=== PATIENT | male | born 1990 | race American Indian/Alaskan Native ===

== ENCOUNTER 2021-01-22 04:57 | Emergency (ER) | payer SELFPAY ==
[2021-01-22 05:10] VITALS: BP 107/62
[2021-01-22] MEDS ORDERED: ONDANSETRON 4 MG ODT TAB PO ONE (05:46)
[2021-01-22] MEDS ORDERED: CYCLOBENZAPRINE 10 MG TAB PO ONE (05:46)
[2021-01-22] MEDS ORDERED: predniSONE 20 MG TAB PO ONE (05:46)
[2021-01-22] MEDS ORDERED: IBUPROFEN 600 MG TAB PO ONE (05:46)
[2021-01-22] MEDS ORDERED: oxyCODONE /ACETAMINOPHEN 5-325MG TAB PO ONE (06:03)
--- NOTE | 2021-01-22 06:34 | Emergency Department Report ---
ED Back Pain/Injury HPI - General Chief Complaint: Back Pain/Injury Stated Complaint: BACK PAIN Time Seen by Provider: 01/22/21 06:03 Source: patient Limitations: No Limitations - History of Present Illness MD Complaint: back pain -: days(s) (4) Similar Symptoms Previously: No Place: home, work (Was playing basketball at work and which she hasn't played in quite some time and was jumping twisting and turning and developed some stiffness during the game which worsen after he sat down and rested and has continued to to aggravate him since the onset. He reports no falls no MVAs no loss of bow) Severity: moderate Quality: dull Consistency: constant Improves With: none Worsens With: movement Context: bending Associated Symptoms: denies: chest pain, difficulty walking, difficulty urinating, diaphoresis, incontinence, fever/chills, constipation, headaches, abdominal pain, nausea/vomiting, rash - Related Data Previous Rx's Medication Instructions Recorded Last Taken Type Ketorolac [Toradol] 10 mg PO Q6H PRN #15 tablet 01/22/21 Unknown Rx methOCARBAMOL [Robaxin] 750 mg PO Q8H PRN #21 tablet 01/22/21 Unknown Rx Allergies Allergy/AdvReac Type Severity Reaction Status Date / Time No Known Allergies Allergy Unverified 01/22/21 05:07 ED Review of Systems ROS: Stated complaint: BACK PAIN Other details as noted in HPI Comment: All other systems reviewed and negative ED Past Medical Hx - Past Medical History Additional medical history: ulcerative colitis - Social History Smoking Status: Never Smoker - Medications Home Medications: Home Medications Medication Instructions Recorded Confirmed Last Taken Type Ketorolac [Toradol] 10 mg PO Q6H PRN #15 tablet 01/22/21 Unknown Rx methOCARBAMOL [Robaxin] 750 mg PO Q8H PRN #21 tablet 01/22/21 Unknown Rx ED Physical Exam - General Limitations: No Limitations General appearance: alert, in no apparent distress - Head Head exam: Present: atraumatic, normocephalic - Eye Eye exam: Present: normal appearance, EOMI Pupils: Present: normal accommodation - ENT ENT exam: Present: mucous membranes moist - Neck Neck exam: Present: normal inspection - Respiratory Respiratory exam: Present: normal lung sounds bilaterally. Absent: respiratory distress - Cardiovascular Cardiovascular Exam: Present: regular rate, normal rhythm. Absent: systolic murmur, diastolic murmur, rubs, gallop - GI/Abdominal GI/Abdominal exam: Present: soft, normal bowel sounds - Rectal Rectal exam: Present: deferred - Extremities Exam Extremities exam: Present: normal inspection - Back Exam Back exam: Present: normal inspection, muscle spasm (Left paraspinous region), paraspinal tenderness, other. Absent: CVA tenderness (R), CVA tenderness (L), vertebral tenderness - Neurological Exam Neurological exam: Present: alert, oriented X3, CN II-XII intact, normal gait - Psychiatric Psychiatric exam: Present: normal affect, normal mood - Skin Skin exam: Present: warm, dry, intact, normal color. Absent: rash ED Course Vital Signs 01/22/21 05:09 Temperature 98.1 F Pulse Rate 61 Respiratory 16 Rate Blood Pressure 107/62 O2 Sat by Pulse 99 Oximetry ED Medical Decision Making - Medical Decision Making Pt presents the emergency department complaining of back pain most consistent with strain back Pain Most Consistent with Strain/Contusion. Differential Diagnosis Includes Lumbar Go Versus Musculoskeletal Spasm, Strain Versus Sciatica. No Back Pain Red Flags on History or Physical. Presentation Not Consistent with Malignancy, Fracture, Cauda Equina, Abdominal Aortic Aneurysm, Viscus Perforation, Pulmonary Embolism, Renal Colic, Pyelonephritis. Patient reports no B symptoms, trauma trauma, incontinence, saddle anesthesia, distal weakness, urinary symptoms and is a febrile. Critical care attestation.: If time is entered above; I have spent that time in minutes in the direct care of this critically ill patient, excluding procedure time. ED Disposition Clinical Impression: Lumbar strain Disposition: DC-01 TO HOME OR SELFCARE Is pt being admited?: No Does the pt Need Aspirin: No Condition: Stable Instructions: How to Use Cold Therapy, [id number], Lumbosacral Strain, Back Exercises, [id number] Prescriptions: methOCARBAMOL [Robaxin] 750 mg PO Q8H PRN #21 tablet PRN Reason: Spasms Ketorolac [Toradol] 10 mg PO Q6H PRN #15 tablet PRN Reason: Pain Referrals: PRIMARY CARE, [Primary Care Provider] - 3-5 Days BRIJESH SHELBY MD [Staff Physician] - 3-5 Days
== END 2021-01-22 06:25 | disposition home or self-care (01) ==
LOC: ED 04:57
DX: S39.012A Strain of muscle, fascia and tendon of lower back, initial encounter (principal); Z98.890 Other specified postprocedural states; X50.1XXA Overexertion from prolonged static or awkward postures, initial encounter; Y93.89 Activity, other specified; Y92.89 Other specified places as the place of occurrence of the external cause; Y99.8 Other external cause status
CPT/HCPCS: 99282; J7512; Q0162

== ENCOUNTER 2021-04-04 09:50 | Emergency (ER) | payer SELFPAY ==
[2021-04-04 11:16] VITALS: BP 107/73
--- NOTE | 2021-04-04 14:22 | Emergency Department Report ---
ED General Adult HPI - General Chief complaint: Back Pain/Injury Stated complaint: BACK/SIDE PAIN Time Seen by Provider: 04/04/21 14:14 Source: patient Mode of arrival: Ambulatory Limitations: No Limitations - History of Present Illness Initial comments: Patient is a 30-year-old male presents emergency with complaints of lower back pain that began a week ago. Patient states he was reading on the Internet and is concerned that he has a kidney stone or a kidney infection. He has had no fall or injury. He works in a warehouse and lifts heavy. He denies any fever, nausea, vomiting, diarrhea, abdominal pain, pain or swelling the testicles, dysuria, hematuria. No past medical history. No allergies to medications. Patient was evaluated in the emergency department a little over 2 months ago for the same complaint and he never followed up with anyone. - Related Data Previous Rx's Medication Instructions Recorded Last Taken Type Ketorolac [Toradol] 10 mg PO Q6H PRN #15 tablet 01/22/21 Unknown Rx methOCARBAMOL [Robaxin] 750 mg PO Q8H PRN #21 tablet 01/22/21 Unknown Rx Doxycycline Hyclate [Doxycycline 100 mg PO BID 7 Days #14 tab 04/04/21 Unknown Rx Hyclate TAB] Allergies Allergy/AdvReac Type Severity Reaction Status Date / Time No Known Allergies Allergy Verified 04/04/21 11:12 ED Review of Systems ROS: Stated complaint: BACK/SIDE PAIN Other details as noted in HPI Comment: All other systems reviewed and negative ED Past Medical Hx - Past Medical History Additional medical history: ulcerative colitis - Surgical History Past Surgical History?: No - Social History Smoking Status: Never Smoker - Medications Home Medications: Home Medications Medication Instructions Recorded Confirmed Last Taken Type Ketorolac [Toradol] 10 mg PO Q6H PRN #15 tablet 01/22/21 Unknown Rx methOCARBAMOL [Robaxin] 750 mg PO Q8H PRN #21 tablet 01/22/21 Unknown Rx Doxycycline Hyclate [Doxycycline 100 mg PO BID 7 Days #14 tab 04/04/21 Unknown Rx Hyclate TAB] ED Physical Exam - General Limitations: No Limitations General appearance: alert, in no apparent distress - Head Head exam: Present: atraumatic, normocephalic - Eye Eye exam: Present: normal appearance - ENT ENT exam: Present: mucous membranes moist - Neck Neck exam: Present: normal inspection, full ROM. Absent: tenderness, meningismus - Respiratory Respiratory exam: Present: normal lung sounds bilaterally. Absent: respiratory distress, wheezes, rales, rhonchi, stridor, chest wall tenderness, accessory muscle use, decreased breath sounds, prolonged expiratory - Cardiovascular Cardiovascular Exam: Present: regular rate, normal rhythm, normal heart sounds. Absent: systolic murmur, diastolic murmur, rubs, gallop - GI/Abdominal GI/Abdominal exam: Present: soft. Absent: distended, tenderness, guarding, rebound, rigid - Back Exam Back exam: Present: normal inspection, full ROM, paraspinal tenderness (bilateral lumbar paraspinal muscular ttp, no midline C-spine, T-spine or L- spine ttp, no step offs, no deformities ). Absent: CVA tenderness (R), CVA tenderness (L), vertebral tenderness - Neurological Exam Neurological exam: Present: alert, oriented X3 - Psychiatric Psychiatric exam: Present: normal affect, normal mood - Skin Skin exam: Present: warm, dry, intact ED Course Vital Signs 04/04/21 11:15 Temperature 98.0 F Pulse Rate 72 Respiratory 16 Rate Blood Pressure 107/73 O2 Sat by Pulse 100 Oximetry ED Medical Decision Making - Lab Data Lab Results 04/04/21 Range/Units Unknown Urine Color Yellow (Yellow) Urine Turbidity Slightly-cloudy (Clear) Urine pH 7.0 (5.0-7.0) Ur Specific [place] 1.017 (1.003-1.030) Urine Protein <15 mg/dl (Negative) mg/dL Urine Glucose (UA) Neg (Negative) mg/dL Urine Ketones Neg (Negative) mg/dL Urine Blood Sm (Negative) Urine Nitrite Neg (Negative) Urine Bilirubin Neg (Negative) Urine Urobilinogen < 2.0 (<2.0) mg/dL Ur Leukocyte Esterase Sm (Negative) Urine WBC (Auto) 39.0 H (0.0-6.0) /HPF Urine RBC (Auto) 6.0 (0.0-6.0) /HPF Urine Mucus Few /HPF - Medical Decision Making Patient is a 30-year-old male presents emergency with complaints of lower back pain that began a week ago. Patient states he was reading on the Internet and is concerned that he has a kidney stone or a kidney infection. He has had no fall or injury. He works in a warehouse and lifts heavy. He denies any fever, nausea, vomiting, diarrhea, abdominal pain, pain or swelling the testicles, dysuria, hematuria. No past medical history. No allergies to medications. Patient was evaluated in the emergency department a little over 2 months ago for the same complaint and he never followed up with anyone. Vitals are normal. on exam: bilateral lumbar paraspinal muscular ttp, no midline C-spine, T-spine or L-spine ttp, no step offs, no deformities, no CVA tenderness bilaterally. UA shows evidence of white blood cells and small leukocyte esterase, there is not a significant number of red blood cells. Asked patient if he is sexually active and he states yes, asked patient if he is concerned for STDs and he responded yes and he would like to be treated, patient given ceftriaxone IM while in the emergency department and given prescription for doxycycline. Discussed the importance of outpatient follow-up. advised pt Please take medication as prescribed to completion. Please follow-up with the clinic or the health department or to receive a full STD panel. Please have any partners tested and treated as well. Avoid sexual intercourse. Return to emergency room for any new or worsening symptoms. May alternate Tylenol or ibuprofen as needed for back pain. May use ice pack, heating pad, rest, and salt bath. May use [place] balm ointment but do not use heat or ice while using. Critical care attestation.: If time is entered above; I have spent that time in minutes in the direct care of this critically ill patient, excluding procedure time. ED Disposition Clinical Impression: Bacteria in urine, Concern about STD in male without diagnosis Low back pain Qualifiers: Chronicity: acute Back pain laterality: bilateral Sciatica presence: without sciatica Qualified Code(s): M54.5 - Low back pain Disposition: DC-01 TO HOME OR SELFCARE Is pt being admited?: No Does the pt Need Aspirin: No Condition: Stable Additional Instructions: Please take medication as prescribed to completion. Please follow-up with the clinic or the health department or to receive a full STD panel. Please have any partners tested and treated as well. Avoid sexual intercourse. Return to emergency room for any new or worsening symptoms. May alternate Tylenol or ibuprofen as needed for back pain. May use ice pack, heating pad, rest, and salt bath. May use [place] balm ointment but do not use heat or ice while using. walk in clinic for STD testing: [facility] Address: [address] [place] [address], [place] [address] Prescriptions: Doxycycline Hyclate [Doxycycline Hyclate TAB] 100 mg PO BID 7 Days #14 tab Referrals: [facility] [Outside] - 2-3 Days Time of Disposition: 15:40 Print Language: GREEK
[2021-04-04 15:21] LABS: Bilirubin,Urine NEG (Negative); Blood,Urine SM (Negative); Color,Urine Yellow (Yellow); Mucus,Urine FEW /HPF; Protein,Urine <15 mg/dL mg/dL (Negative); Urobilinogen,Urine < 2.0 mg/dL (<2.0)
[2021-04-04] MEDS ORDERED: LIDOCAINE-MPF (1%) 10 MG/1 ML VIAL 5 ML INFILTRATI ONE (15:40)
== END 2021-04-04 16:19 | disposition home or self-care (01) ==
LOC: ED 09:50
DX: R82.71 Bacteriuria (principal); M54.5 Low back pain
CPT/HCPCS: 81001; 87086; 96372; 99283; J0696

== ENCOUNTER 2022-05-25 12:21 | Emergency (ER) | payer SELFPAY ==
[2022-05-25 13:20] VITALS: BP 109/68
[2022-05-25] MEDS ORDERED: KETOROLAC 60 MG/2 ML INJ IM STA (16:29)
[2022-05-25] MEDS ORDERED: HYDROcodone/ACETAMINOPHEN 5-325 MG TAB PO STA ×2 (16:29→18:59)
--- NOTE | 2022-05-25 16:35 | Emergency Department Report ---
ED Back Pain/Injury HPI - General Chief Complaint: Pain General Stated Complaint: LEG AND BACK PAIN Time Seen by Provider: 05/25/22 16:12 Source: patient Limitations: No Limitations - History of Present Illness Initial Comments: 31-year-old male with no significant past medical history presents to the emergency department complaining of a few day history of back pain that is ra diating down his left leg and and now to his right leg with sharp shooting burning fashion. He is now also noticing some swelling involved of unknown etiology reports no calf pain, no long travel no long no previous history of any DVTs. Pain is dull and throbbing worse with palpation and range of motion. MD Complaint: back pain -: Gradual Similar Symptoms Previously: No Place: home Radiation: none Severity: mild Quality: burning Consistency: constant Improves With: none Worsens With: none Associated Symptoms: denies other symptoms - Related Data Previous Rx's Medication Instructions Recorded Last Taken Type Ketorolac [Toradol] 10 mg PO Q6H PRN #15 tablet 01/22/21 Unknown Rx methOCARBAMOL [Robaxin] 750 mg PO Q8H PRN #21 tablet 01/22/21 Unknown Rx Doxycycline Hyclate [Doxycycline 100 mg PO BID 7 Days #14 tab 04/04/21 Unknown Rx Hyclate TAB] Ketorolac [Toradol] 10 mg PO Q6H PRN #15 tablet 05/25/22 Unknown Rx methOCARBAMOL [Robaxin] 750 mg PO Q8H PRN #21 tablet 05/25/22 Unknown Rx Allergies Allergy/AdvReac Type Severity Reaction Status Date / Time No Known Allergies Allergy Verified 04/04/21 11:12 ED Review of Systems ROS: Stated complaint: LEG AND BACK PAIN Other details as noted in HPI Comment: All other systems reviewed and negative ED Past Medical Hx - Past Medical History Previous Medical History?: No Additional medical history: ulcerative colitis - Social History Smoking Status: Never Smoker - Medications Home Medications: Home Medications Medication Instructions Recorded Confirmed Last Taken Type Ketorolac [Toradol] 10 mg PO Q6H PRN #15 tablet 01/22/21 Unknown Rx methOCARBAMOL [Robaxin] 750 mg PO Q8H PRN #21 tablet 01/22/21 Unknown Rx Doxycycline Hyclate [Doxycycline 100 mg PO BID 7 Days #14 tab 04/04/21 Unknown Rx Hyclate TAB] Ketorolac [Toradol] 10 mg PO Q6H PRN #15 tablet 05/25/22 Unknown Rx methOCARBAMOL [Robaxin] 750 mg PO Q8H PRN #21 tablet 05/25/22 Unknown Rx ED Physical Exam - General Limitations: No Limitations General appearance: alert, in no apparent distress - Head Head exam: Present: atraumatic, normocephalic - Eye Eye exam: Present: normal appearance, PERRL, EOMI Pupils: Present: normal accommodation - ENT ENT exam: Present: normal exam, normal orophraynx, mucous membranes moist, TM's normal bilaterally - Neck Neck exam: Present: normal inspection, full ROM - Respiratory Respiratory exam: Present: normal lung sounds bilaterally. Absent: respiratory distress - Cardiovascular Cardiovascular Exam: Present: regular rate, normal rhythm. Absent: systolic murmur, diastolic murmur, rubs, gallop - GI/Abdominal GI/Abdominal exam: Present: soft, normal bowel sounds - Rectal Rectal exam: Present: deferred - Extremities Exam Extremities exam: Present: normal inspection, tenderness, normal capillary refill, joint swelling, other (Pulses 2+ cap refills are brisk. There is sensitivity to light touch.). Absent: pedal edema, calf tenderness - Back Exam Back exam: Present: normal inspection. Absent: CVA tenderness (R), CVA tenderness (L), muscle spasm - Neurological Exam Neurological exam: Present: alert, oriented X3 - Psychiatric Psychiatric exam: Present: normal affect, normal mood - Skin Skin exam: Present: warm, dry, intact, normal color, other (Multiple tattoos to the legs arms). Absent: rash ED Course Vital Signs 05/25/22 05/25/22 13:19 16:40 Temperature 98 F Pulse Rate 81 Respiratory 16 14 Rate Blood Pressure 109/68 [Left] O2 Sat by Pulse 100 Oximetry ED Medical Decision Making - Lab Data Result diagrams: 05/25/22 16:55 05/25/22 16:55 Lab Results 05/25/22 05/25/22 Range/Units 16:55 16:55 WBC 10.9 (4.5-11.0) K/mm3 RBC 4.42 (3.65-5.03) M/mm3 Hgb 13.8 (11.8-15.2) gm/dl Hct 41.3 (35.5-45.6) % MCV 94 (84-94) fl MCH 31 (28-32) pg MCHC 34 (32-34) % RDW 13.7 (13.2-15.2) % Plt Count 140 (140-440) K/mm3 Lymph % (Auto) 19.5 (13.4-35.0) % [place] % (Auto) 6.7 (0.0-7.3) % Eos % (Auto) 1.2 (0.0-4.3) % Baso % (Auto) 0.6 (0.0-1.8) % Lymph # (Auto) 2.1 (1.2-5.4) K/mm3 [place] # (Auto) 0.7 (0.0-0.8) K/mm3 Eos # (Auto) 0.1 (0.0-0.4) K/mm3 Baso # (Auto) 0.1 (0.0-0.1) K/mm3 Seg Neutrophils % 72.0 H (40.0-70.0) % Seg Neutrophils # 7.8 H (1.8-7.7) K/mm3 ESR 17 (0-20) mm/Hr Sodium 141 (137-145) mmol/L Potassium 4.3 (3.6-5.0) mmol/L Chloride 103.2 (98-107) mmol/L Carbon Dioxide 21 L (22-30) mmol/L Anion Gap 21 mmol/L BUN 11 (9-20) mg/dL Creatinine 0.9 (0.8-1.3) mg/dL Estimated GFR > 60 ml/min BUN/Creatinine Ratio 12 % Glucose 62 L (75-100) mg/dL Calcium 9.7 (8.4-10.2) mg/dL - Radiology Data Radiology results: report reviewed [facility] [address] [place] [address] XRay Report Signed Patient: LUIS ALFORD MR#: [id number] : 1990 Acct:[id number] Age/Sex: 31 / M ADM Date: 05/25/22 Loc: ED Attending Dr: Ordering Physician: BLANCA ROSADO Date of Service: 05/25/22 Procedure(s): XR spine lumbosacral 2-3V Accession Number(s): [id number] cc: BLANCA ROSADO Fluoro Time In Minutes: LUMBAR SPINE 3 VIEWS INDICATION / CLINICAL INFORMATION: lower back pain. COMPARISON: None available. FINDINGS: VERTEBRAE: No acute fracture. No significant malalignment. DISC SPACES / FACET JOINTS:No significant abnormality. PARASPINAL SOFT TISSUES:No significant abnormality. ADDITIONAL FINDINGS: None. IMPRESSION: 1. No acute findings. Signer Name: Brijesh Eric MD Signed: 05/25/2022 5:16 PM Workstation Name: [id number] Transcribed By: RV Dictated By: BRIJESH ERIC MD Electronically Authenticated By: BRIJESH ERIC MD Signed Date/Time: 05/25/221715 DD/ 14 TD/TT: Critical care attestation.: If time is entered above; I have spent that time in minutes in the direct care of this critically ill patient, excluding procedure time. ED Disposition Clinical Impression: Radiculopathy Disposition: HOME / SELF CARE / HOMELESS Is pt being admited?: No Does the pt Need Aspirin: No Condition: Stable Instructions: Lumbosacral Radiculopathy, Radicular Pain Prescriptions: methOCARBAMOL [Robaxin] 750 mg PO Q8H PRN #21 tablet PRN Reason: Spasms Ketorolac [Toradol] 10 mg PO Q6H PRN #15 tablet PRN Reason: Pain Referrals: PRIMARY MD NUHA [Primary Care Provider] - 3-5 Days EVGENY RAMESH MD [Staff Physician] - 3-5 Days
--- NOTE | 2022-05-25 17:20 | XRay Report ---
LUMBAR SPINE 3 VIEWS INDICATION / CLINICAL INFORMATION: lower back pain. COMPARISON: None available. FINDINGS: VERTEBRAE: No acute fracture. No significant malalignment. DISC SPACES / FACET JOINTS:No significant abnormality. PARASPINAL SOFT TISSUES:No significant abnormality. ADDITIONAL FINDINGS: None. IMPRESSION: 1. No acute findings. Signer Name: Bulmaro Greenwood MD Signed: 05/25/2022 5:16 PM Workstation Name: [email or web address]
[2022-05-25 17:40] LABS: Basophils # (Auto) 0.1 K/mm3 (0.0-0.1); Basophils % (Auto) 0.6 % (0.0-1.8); Eosinophils # (Auto) 0.1 K/mm3 (0.0-0.4); Eosinophils % (Auto) 1.2 % (0.0-4.3); Hematocrit 41.3 % (35.5-45.6); Hemoglobin 13.8 gm/dl (11.8-15.2); Lymphocytes # (Auto) 2.1 K/mm3 (1.2-5.4); Lymphocytes % (Auto) 19.5 % (13.4-35.0); Mean Corpuscular HGB Conc 34 % (32-34); Mean Corpuscular Volume 94 fl (84-94); Monocytes # (Auto) 0.7 K/mm3 (0.0-0.8); Monocytes % (Auto) 6.7 % (0.0-7.3); Platelet Count 140 K/mm3 (140-440); Red Blood Count 4.42 M/mm3 (3.65-5.03); Red Cell Distribution Width 13.7 % (13.2-15.2)
[2022-05-25 17:53] LABS: BUN/Creatinine Ratio 12; Blood Urea Nitrogen 11 mg/dL (9-20); Calcium 9.7 mg/dL (8.4-10.2); Hemolysis Index 2
[2022-05-25 18:06] LABS: Erythrocyte Sedimentation Rate 17 mm/Hr (0-20)
== END 2022-05-25 21:53 | disposition home or self-care (01) ==
LOC: ED 12:21
DX: M54.10 Radiculopathy, site unspecified (principal); M79.662 Pain in left lower leg; M54.16 Radiculopathy, lumbar region; M79.661 Pain in right lower leg
CPT/HCPCS: 36415; 72100; 80048; 85025; 85652; 96372; 99283; J1885